=== PATIENT | male | born 1975 | race Two or more races ===

== ENCOUNTER 2018-11-05 11:27 | Emergency (ER) | payer BC, OTHER ==
[~2018-11-05] VITALS: Ht 167.6 cm; Wt 77.1 kg
[2018-11-05 12:32] VITALS: BP 133/92
[2018-11-05] MEDS ORDERED: ACETAMINOPHEN 325 MG TAB PO ONE (13:00)
== END 2018-11-05 14:09 | disposition home or self-care (01) ==
LOC: EDBD 11:27 → ER 11:27
DX: S16.1XXA Strain of muscle, fascia and tendon at neck level, initial encounter (principal); E11.9 Type 2 diabetes mellitus without complications; I10 Essential (primary) hypertension; V43.52XA Car driver injured in collision with other type car in traffic accident, initial encounter; Y93.89 Activity, other specified; Y99.8 Other external cause status; Y92.410 Unspecified street and highway as the place of occurrence of the external cause